=== PATIENT | male | born 1985 | race American Indian/Alaskan Native ===

== ENCOUNTER 2019-06-30 20:33 | Emergency (ER) | payer BC ==
--- NOTE | 2019-06-30 21:21 | EDM.PDOCBH ---
ED HPI GENERAL MEDICAL PROBLEM - General Chief Complaint: Drug or Alcohol Abuse Stated Complaint: DRINKING FOR 4 TO 5 DAYS DETOX CANT SLEEP Time Seen by Provider: 06/30/19 20:51 Source of Information: Reports: Patient History Limitations: Reports: Intoxication - History of Present Illness INITIAL COMMENTS - FREE TEXT/NARRATIVE: This is a 33-year-old male. He comes tonight because he says he has been drinking 18 beers a day for the last 5 days. He says he is not sleeping very well and he will sleep for 30 minutes wake up try to drink a beer and then vomit. He does not appear to be in distress he does not appear to be anxious. He says he does have a problem with alcohol in the past though he is not a daily drinker like this. Normally what makes him stop drinking is when he runs out of alcohol. He denies any recent illnesses no colds no coughs no fever no chills. I spoke to Alexandria his at [phone] explained to her that we are going to look at him and give him some fluids and see how he is doing and that if he is drunk or has significant alcohol and not going through withdrawal we would discharge him from the ER and once he is having symptoms of withdrawal then we can possibly put him in the hospital to help with that but as long as he is drinking and has alcohol in his system and is not going through withdrawal all we can do is make sure that he is going to be okay and then release him from the ER. She is concerned about him because he does go through DTs at times when he stops drinking. She is not able to come to the ER because she is in [place]. Abdomen Pain Score (Numeric/FACES): 4 Past Medical History - Past Health History Medical/Surgical History: Denies Medical/Surgical History Social & Family History - Tobacco Use Smoking Status *Q: Former Smoker Used Tobacco, but Quit: Yes Month/Year Tobacco Last Used: 2015 - Alcohol Use Days Per Week of Alcohol Use: 5 Number of Drinks Per Day: 18 Total Drinks Per Week: 90 - Recreational Drug Use Recreational Drug Use: No ED ROS GENERAL - Review of Systems Review Of Systems: See Below Constitutional: Denies: Fever, Chills HEENT: Reports: No Symptoms Respiratory: Reports: No Symptoms Cardiovascular: Reports: No Symptoms Endocrine: Reports: No Symptoms GI/Abdominal: Reports: Abdominal Pain, Nausea, Vomiting. Denies: Constipation, Diarrhea : Reports: No Symptoms Musculoskeletal: Reports: No Symptoms Skin: Reports: No Symptoms Neurological: Reports: Other (The patient is answering questions appropriately though he does appear to be inebriated ) Psychiatric: Reports: No Symptoms Hematologic/Lymphatic: Reports: No Symptoms ED EXAM, BEHAVIORAL HEALTH - Physical Exam Exam: See Below Exam Limited By: Intoxication General Appearance: Alert, WD/WN, No Apparent Distress Eye Exam: Bilateral Eye: Normal Inspection Ears: Normal External Exam, Normal Canal, Normal TMs Nose: Normal Inspection Throat/Mouth: Normal Inspection, Normal Lips, Normal Voice, No Airway Compromise Head: Normocephalic Neck: Supple Respiratory/Chest: No Respiratory Distress, Lungs Clear, Normal Breath Sounds Cardiovascular: Regular Rate, Rhythm, No Murmur GI/Abdominal: Soft, Non-Tender, Other (Complains of soreness in his upper abdomen but he does not have any guarding or distention or rebound noted bowel sounds are positive but they are decreased) Back Exam: Normal Inspection, Full Range of Motion Extremities: Normal Inspection, Normal Range of Motion Neurological: Alert, Normal Mood/Affect, Other (The patient walks with no difficulty, he has good balance, he does appear to be inebriated) Psychiatric: Alert, Normal Affect, Normal Mood, Oriented Skin Exam: Warm, Dry COURSE, BEHAVIORAL HEALTH COMP - Course Vital Signs: Last Vital Signs Temp 97.8 F 06/30/19 20:44 Pulse 84 06/30/19 20:44 Resp 20 06/30/19 20:44 BP Pulse Ox 100 06/30/19 20:44 Discharge vs Psych Eval/Treatment:: 06/30/19 21:23 As I was talking to his Alexandria apparently the patient said he was going to the bathroom but then he left the ER and walked out the front door. The patient eloped. Departure - Departure Time of Disposition: 21:24 Disposition: Eloped 07 Condition: Fair Clinical Impression: Alcohol abuse, Alcohol use disorder - Discharge Information *PRESCRIPTION DRUG MONITORING PROGRAM REVIEWED*: Not Applicable *COPY OF PRESCRIPTION DRUG MONITORING REPORT IN PATIENT VANNESSA: Not Applicable Referrals: PCP,None [Primary Care Provider] - Forms: Refusal of Exam and Treatment Additional Instructions: The patient told the nurse he was going to the bathroom and then he walked out of the ER in the back door and then walked out the entrance to the ER without telling the nurse or notifying me. The patient eloped on his own. Sepsis Event Note - Evaluation Sepsis Screening Result: No Definite Risk - Focused Exam Vital Signs: Vital Signs Temp Pulse Resp Pulse Ox 06/30/19 20:44 97.8 F 84 20 100 Date Exam was Performed: 06/30/19 Time Exam was Performed: 21:13
== END 2019-06-30 21:27 | disposition left against medical advice (07) ==
LOC: JD.ED 20:33
DX: F10.10 Alcohol abuse, uncomplicated (principal); Z87.891 Personal history of nicotine dependence
CPT/HCPCS: 99282; 99283